=== PATIENT | female | born 2005 | race Caucasian/White ===

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

== ENCOUNTER 2024-07-11 14:48 | Emergency (ER) | payer MEDICAID, SELFPAY ==
--- NOTE | 2024-07-11 14:51 | XRR_ITS ---
PROCEDURE INFORMATION: Exam: XR Chest Exam date and time: 07/11/2024 2:57 PM Age: 19 years old Clinical indication: Other: Light headed TECHNIQUE: Imaging protocol: Radiologic exam of the chest. Views: 1 view. COMPARISON: No relevant prior studies available. FINDINGS: Lungs: Unremarkable. No consolidation. Pleural spaces: Unremarkable. No pleural effusion. No pneumothorax. Heart/Mediastinum: Unremarkable. No cardiomegaly. Bones/joints: Unremarkable. XR/XR chest 1V portable [id number] IMPRESSION: No acute findings.
[2024-07-11 15:08] VITALS: BP 122/85; PULSE 89; RESP 16; TEMP 36.7; O2SAT 98
--- NOTE | 2024-07-11 15:09 | ECG_ITS ---
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 Measurements Intervals [place] Rate: 85 P: 30 FL: 152 QRS: 23 QRSD: 82 T: 19 QT: 347 QTc: 415 Interpretive Statements SINUS RHYTHM No previous ECG available for comparison Electronically Signed On 07-11-2024 19:41:11 CDT by Félix Barr M.D. [id number]
[2024-07-11 15:14] LABS: Basophils % 0.2 %; Eosinophils # 0.1 10^3/uL (0.0-0.8); Eosinophils % 0.9 %; Hematocrit 40.8 % (36-47); Lymphocytes % 22.9 %; Mean Corpuscular HGB Conc 33.6 g/dL (30-55); Mean Corpuscular Hemoglobin 29.8 pg (27-33); Mean Corpuscular Volume 88.7 fl (85-98); Monocytes # 0.7 10^3/uL (0.2-0.9); Monocytes % 7.8 %; Neutrophils % 67.7 %; Nucleated Red Blood Cells % 0 %; Platelet Count 298 10^3/cmm (157-399); Red Cell Distribution Width 12.4 % (12.1-15.1); White Blood Count 8.72 10^3/uL (4.5-13.0)
[2024-07-11 15:29] LABS: HCG, Serum Qual Negative (Negative)
[2024-07-11 15:33] LABS: Alanine Aminotransferase 13 U/L (0-33); Albumin Level 4.5 g/dL (3.5-5.2); Alkaline Phosphatase 73 U/L (35-105); Anion Gap 15.7 (5-19); Aspartate Amino Transferase 11 U/L (0-32); Blood Urea Nitrogen 6 mg/dL (6-20); Calcium 9.3 mg/dL (8.5-10.5); Carbon Dioxide 21 mmol/L (22-29); Chloride 107 mmol/L (98-107); Creatinine Clr Calc Pharmacy 195.6949; Globulin 3.4 g/dL (1.3-4.6); Glomerular Filtration Rate 157.3 mL/min (90-130); Glucose 109 mg/dL (65-115); Osmolality Calculated 288 mOsm/kg (285-295); Potassium 3.7 mmol/L (3.5-5.1); Sodium 140 mmol/L (136-145); Total Bilirubin 0.3 mg/dL (0.15-1.2); Total Protein 7.9 g/dL (6.6-8.7)
--- NOTE | 2024-07-11 15:36 | ED_ITS ---
HPI - Dizziness 2 General: Chief Complaint: Dizziness Stated Complaint: light headed Time Seen by Provider: 07/11/24 15:27 Source: patient Mode of arrival: ambulatory Limitations: no limitations History of Present Illness: HPI Narrative: 19-year-old female who states that 2 rachel rs ago she stood up and walk across forward felt lightheaded states she felt like she is going to pass out states this has happened in the past states it is improved but she still feeling slightly lightheaded she denies passing out denies any headache denies any chest pain denies any dizziness she denies any vomiting or diarrhea states she does not feel dehydrated. Associated symptoms: Denies chest pain, chills, headache(s), nausea or vomiting Related Data Previous Rx's Medication Instructions Recorded omeprazole 40 mg capsule,delayed 40 mg PO DAILY #14 caps 05/06/22 release ondansetron 4 mg disintegrating 4 mg PO Q8H PRN nausea and 05/06/22 tablet vomiting #10 tabs Allergies Allergy/AdvReac Type Severity Reaction Status Date / Time No Known Allergies Allergy Verified 07/11/24 15:11 Review of Systems 2 Const: Denies: fever(s), chills, body aches or change in appetite Eyes: Denies: blurry vision or eye discomfort ENMT: Denies: throat pain or dental pain Card: Reports: pre-syncope; Denies: chest pain Resp: Denies: dyspnea GI: Denies: abdominal pain, nausea, vomiting or diarrhea : Denies: dysuria Musc: Denies: neck pain or back pain Skin/Breast: Denies: rash Neuro: Denies: headache(s) [facility] ED 2 Female Reproductive History: Date of last menstrual period: 07/09/24 Physical Exam 2 Const: COMMON NORMALS: no acute distress, patient oriented x3 and healthy appearing HENMT: COMMON NORMALS: normocephalic and atraumatic HEAD & SCALP: n ormocephalic and atraumatic Neck/C-Spine: COMMON NORMALS: full ROM and supple Chest: COMMONS NORMALS: normal inspection of the chest and normal palpation of entire chest wall Resp: COMMON NORMALS: normal respiratory effort, No retractions, No use of accessory muscles and clear to auscultation bilaterally AUSCULTATION: clear to auscultation bilaterally Cardio: COMMON NORMALS: regular rate, regular rhythm and No murmurs present (Cardio) RATE: regular rate RHYTHM: regular rhythm Extremity: COMMON NORMALS: normal to inspection and full ROM Neuro: COMMON NORMALS: patient oriented x3, moves all extremities and no focal motor deficits Psych: COMMON NORMALS: mental status grossly normal, Normal thought process present and cooperative THOUGHT PROCESS: Normal thought process present Skin: COMMON NORMALS: no rashes or lesions noted and no wounds GENERAL SKIN EXAM: no rashes or lesions noted Course 2 Vital Signs: Vital signs: Vital Signs Temperature 98.1 F 07/11/24 15:08 Pulse Rate 91 07/11/24 16:03 Respiratory Rate 16 07/11/24 15:08 Blood Pressure 148/100 07/11/24 16:03 Pulse Oximetry 100 07/11/24 16:03 Oxygen Delivery Me thod Room Air 07/11/24 16:03 MDM - Dizziness Medical Decision Making Patient presents with a near syncopal event some lightheadedness she has been well-appearing here and orthostatics are normal blood work is normal no vertigo noted no headache she is stable for discharge follow-up with PCP return if worsening. Medical Records I reviewed the patient's medical records. Lab Data I reviewed the patient's lab results. 07/11/24 15:08 07/11/24 15:08 Laboratory Results WBC 8.72 10^3/uL (4.5-13.0) 07/11/24 15:08 RBC 4.60 10^6/uL (3.85-5.65) 07/11/24 15:08 Hgb 13.70 g/dL (12.4-14.8) 07/11/24 15:08 Hct 40.8 % (36-47) 07/11/24 15:08 MCV 88.7 fl (85-98) 07/11/24 15:08 MCH 29.8 pg (27-33) 07/11/24 15:08 MCHC 33.6 g/dL (30-55) 07/11/24 15:08 RDW 12.4 % (12.1-15.1) 07/11/24 15:08 Plt Count 298 10^3/cmm (157-399) 07/11/24 15:08 MPV 10.0 fL (7.4-10.4) 07/11/24 15:08 Neut % (Auto) 67.7 % 07/11/24 15:08 Lymph % (Auto) 22.9 % 07/11/24 15:08 [place] % (Auto) 7.8 % 07/11/24 15:08 Eos % (Auto) 0.9 % 07/11/24 15:08 Baso % (Auto) 0.2 % 07/11/24 15:08 Neut # (Auto) 5.90 10^3/uL (1.8-8.0) 07/11/24 15:08 Lymph # (Auto) 2.0 10^3/uL (1.5-6.5) 07/11/24 15:08 [place] # (Auto) 0.7 10^3/uL (0.2-0.9) 07/11/24 15:08 Eos # (Auto) 0.1 10^3/uL (0.0-0.8) 07/11/24 15:08 Baso # (Auto) 0.0 10^3/uL (0.0-0.1) 07/11/24 15:08 Nucleated RBC % (auto) 0 % 07/11/24 15:08 Nucleated RBCs # 0.0 /100WBC 07/11/24 15:08 Sodium 140 mmol/L (136-145) 07/11/24 15:08 Potassium 3.7 mmol/L (3.5-5.1) 07/11/24 15:08 Chloride 107 mmol/L (98-107) 07/11/24 15:08 Carbon Dioxide 21 mmol/L (22-29) L 07/11/24 15:08 Anion Gap 15.7 (5-19) 07/11/24 15:08 BUN 6 mg/dL (6-20) 07/11/24 15:08 Creatinine 0.5 mg/dL (0.5-0.9) 07/11/24 15:08 GFR Calculation 157.3 mL/min (90-130) H 07/11/24 15:08 Glucose 109 mg/dL (65-115) 07/11/24 15:08 Calculated Osmolality 288 mOsm/kg (285-295) 07/11/24 15:08 Calcium 9.3 mg/dL (8.5-10.5) 07/11/24 15:08 Total Bilirubin 0.3 mg/dL (0.15-1.2) 07/11/24 15:08 AST 11 U/L (0-32) 07/11/24 15:08 ALT 13 U/L (0-33) 07/11/24 15:08 Alkaline Phosphatase 73 U/L (35-105) 07/11/24 15:08 Total Protein 7.9 g/dL (6.6-8.7) 07/11/24 15:08 Albumin 4.5 g/dL (3.5-5.2) 07/11/24 15:08 Globulin 3.4 g/dL (1.3-4.6) 07/11/24 15:08 HCG, Qual Negative (Negative) 07/11/24 15:08 All radiology interpretation(s) finalized by discharge EKG Data EKG 1: I personally reviewed and interpreted this EKG as follows: EKG interpretation date: 07/11/24 EKG interpretation time: 15:09 Interpretation: nsr hr [address] or t wave abnormalities qrs 82 qtc 390 Discharge Plan Discharge Patient Disposition: Home Clinical Impression: Near syncope Condition: Stable Prescriptions: No Action omeprazole 40 mg capsule,delayed release(DR/EC) 40 mg PO DAILY Qty: 14 0RF Rx Instructions: take 30 minutes before first meal of the day ondansetron 4 mg tablet,disintegrating 4 mg PO Q8H PRN (Reason: nausea and vomiting) Qty: 10 0RF Discharge Orders: Discharge ED (Routine); Ordered 07/11/24 Ordered By: Amor Evans Discharge Diet: Advance as tolerated Discharge Activity: Resume usual activity Patient Instructions: Near Syncope (ED) Coding Level of Care Code ED Quality Improvement Specialist for Torsten Reinoso
[2024-07-11 16:01] VITALS: BP 141/85; BP 148/100; BP 152/95; PULSE 85; PULSE 86; PULSE 95
[2024-07-11 16:03] VITALS: BP 148/100; PULSE 91; O2SAT 100
--- NOTE | 2024-07-11 16:39 | PC.NURSE ---
PATIENT STATES SHE DOES NOT LIKE TO TAKE ANY MEDICATIONS AND REFUSED MED. MED WASTED WITH SUE BARRAGAN RN.
[2024-07-11 16:57] VITALS: BP 148/100; PULSE 91; RESP 16; TEMP 36.7; O2SAT 100
== END 2024-07-11 16:45 | disposition home or self-care (01) ==
PROVIDERS: Emergency Provider Emergency Medicine
DX: R55 Syncope and collapse (principal)
CPT/HCPCS: 36415; 71045; 80053; 84703; 85025; 93005; 99285

== ENCOUNTER 2025-05-20 22:46 | Emergency (ER) | payer MEDICAID, SELFPAY ==
[2025-05-20 22:55] VITALS: BP 122/83; PULSE 93; RESP 14; TEMP 36.7; O2SAT 100; BMI 39.3
[2025-05-20] MEDS: dexamethasone 4 mg Tablet 10 MG PO (23:20)
[2025-05-20 23:21] VITALS: RESP 14
[2025-05-20] MEDS: amoxicillin-clav 875-125 mg Tablet 1 TAB PO (23:21)
[2025-05-20] MEDS: oxyCODONE-APAP 5-325 mg Tablet 2 TAB PO (23:21)
--- NOTE | 2025-05-20 23:52 | W.ED.DENTAL ---
HPI - Dental/Oral General: Chief complaint: Dental/Oral Stated complaint: right side dental pain with swelling Time Seen by Provider: 05/20/25 22:59 History of Present Illness: 20-year-old female with right-sided lower jaw pain and swelling over the past week, much worse over the past 3 days. No vomiting. No fever. No rash. No trouble breathing. No trouble swallowing. No sore throat. Related Data Previous Rx's ?Medication ?Instructions ?Recorded omeprazole 40 mg capsule,delayed 40 mg PO DAILY #14 caps 05/06/22 release ondansetron 4 mg disintegrating 4 mg PO Q8H PRN nausea and 05/06/22 tablet vomiting #10 tabs amoxicillin 875 mg-potassium 1 tab PO BID #20 tabs 05/20/25 clavulanate 125 mg tablet hydrocodone 5 mg-acetaminophen 325 1 tab PO Q8H PRN pain #7 tabs 05/20/25 mg tablet Allergies Allergy/AdvReac Type Severity Reaction Status Date / Time No Known Allergies Allergy Verified 05/20/25 22:58 Physical Exam HENMT: COMMON NORMALS: normocephalic, Normal external nose present and Normal nasal mucous membranes and turbinates present HEAD & SCALP: normocephalic FACE & SINUS: edema; face not symmetric (Right sided swelling) and no erythema NOSE: Normal external nose present, Normal nares present and Normal nasal mucous membranes and turbinates present TEETH & GINGIVA: Yes gingiva abnormal (Right lower gingival tenderness, likely abscess) tender THROAT: posterior oropharynx normal Eye: COMMON NORMALS: Equal, round and reactive pupils present and EOMs intact bilaterally PUPIL: Yes Equal, round and reactive pupils present Chest: CHEST: Yes Symmetrical chest wall rise Resp: COMMON NORMALS: normal respiratory effort, No retractions and clear to auscultation bilaterally AUSCULTATION: clear to auscultation bilaterally Cardio: COMMON NORMALS: regular rate and regular rhythm RATE: regular rate RHYTHM: regular rhythm Course Vital Signs: Vital signs: Vital Signs Temperature 98.1 F 05/20/25 22:55 Pulse Rate 93 05/20/25 22:55 Respiratory Rate 14 05/20/25 23:21 Blood Pressure 122/83 05/20/25 22:55 Pulse Oximetry 100 05/20/25 22:55 MDM - Dental/Oral Medical Decision Making Patient given 1 dose of dexamethasone for swelling, Augmentin. Short course of pain medication. Dental follow-up. She also has some tenderness to the right buccal mucosa with redness around her salivary duct opening. She could have some sialoadenitis as well. She was encouraged to use things that make her's elevate in case that there is some degree of salivary involvement No radiology studies performed this visit Discharge Plan Discharge Patient Disposition: Home Clinical Impression: Gingival abscess Condition: Stable Prescriptions: New hydrocodone-acetaminophen 5-325 mg tablet 1 tab PO Q8H PRN (Reason: pain) Qty: 7 0RF amoxicillin-pot clavulanate 875-125 mg tablet 1 tab PO BID Qty: 20 0RF No Action omeprazole 40 mg capsule,delayed release(DR/EC) 40 mg PO DAILY Qty: 14 0RF Rx Instructions: take 30 minutes before first meal of the day ondansetron 4 mg tablet,disintegrating 4 mg PO Q8H PRN (Reason: nausea and vomiting) Qty: 10 0RF Discharge Orders: Discharge ED (Routine); Ordered 05/20/25 Ordered By: Julio Westfall Patient Instructions: Dental Abscess (ED), Opioid Safety, Pain Management Activity Restrictions/Additional Instructions: Medication as directed. Contact your dentist on Friday for follow-up appointment. Print Language: German Coding Level of Care Code ED Cytology Laboratory Manager for Torsten Reinoso
== END 2025-05-20 23:37 | disposition home or self-care (01) ==
PROVIDERS: Emergency Provider Emergency Medicine
DX: K05.20 Aggressive periodontitis, unspecified (principal)
CPT/HCPCS: 99283; J8540; J9999

== ENCOUNTER 2025-06-21 14:52 | Emergency (ER) | payer MEDICAID, SELFPAY ==
[2025-06-21 14:55] VITALS: BP 131/73; PULSE 105; RESP 16; TEMP 37.2; O2SAT 97
--- NOTE | 2025-06-21 15:10 | ED_ITS ---
HPI - Dental/Oral 2 General: Chief complaint: Dental/Oral Stated complaint: pain on rt side of face Time Seen by Provider: 06/21/25 14:56 Source: patient Mode of arrival: ambulatory Limitations: no limitations History of Present Illness: 20-year-old female who presents to the E D for complaint of right lower molar dental pain. Patient was here about 4 weeks ago for the same complaint and was treated with antibiotics. She completed her antibiotics and states she did not have any issues until the last couple of days. She states that she has an appointment scheduled with a dentist in 2 weeks. She reports worsening dental pain and mild swelling to her right cheek area over the last few days. She is able to eat/drink/swallow normally. No trouble breathing or controllling secretions. No fevers. No other complaints at this time. MD Complaint: tooth pain Teeth map: 1. Onset (ago): day(s) Duration: constant Severity: moderate Exacerbating factors: chewing Context: history of dental caries Associated symptoms: Reports no associated symptoms; Denies ear or mastoid pain, fever(s) or odynophagia Treatment prior to arrival: none Related Data Previous Rx's ?Medication ?Instructions ?Recorded omeprazole 40 mg capsule,delayed 40 mg PO DAILY #14 ca ps 05/06/22 release ondansetron 4 mg disintegrating 4 mg PO Q8H PRN nausea and 05/06/22 tablet vomiting #10 tabs hydrocodone 5 mg-acetaminophen 325 1 tab PO Q8H PRN pa in #7 tabs 05/20/25 mg tablet amoxicillin 875 mg-potassium 1 tab PO BID #20 tabs clavulanate 125 mg tablet Allergies Allergy/AdvReac Type Severity Reaction Status Date / Time No Known Allergies Allergy Verified 05/20/25 22:58 Review of Systems 2 Const: Denies: fever(s), chills, body aches, fatigue or malaise ENMT: Reports: dental pain; Denies: throat pain, uvular edema, enlarged tonsils, odynophagia, mouth pain, swelling of lips/tongue, oral sores, ear or mastoid pain or sinus pain Card: Denies: chest pain Resp: Denies: dyspnea GI: Denies: nausea or vomiting Musc: Denies: neck pain Neuro: Denies: headache(s) Physical Exam 2 Const: COMMON NORMALS: no acute distress, average body habitus, patient oriented x3, no limitations, healthy appearing, alert and well nourished G ENERAL APPEARANCE: cooperative ORIENTATION/CONSCIOUSNESS: Yes awake, Yes oriented to person, Yes oriented to place and Yes oriented to time HENMT: COMMON NORMALS: normocephalic and atraumatic HEAD & SCALP: normal to inspection, normocephalic and atraumatic FACE & SINUS: other (maybe very mild R sided mandibular edema; no submandibular swelling) FACE & SINUS IMAGES: 1. edema MOUTH: Normal oral and palatal mucosa present, lip normal, tongue normal and Normal salivary glands and ducts present TEETH & GINGIVA: Yes caries TEETH & GINGIVA IMAGES: 1. reports painful R lower molar; gingival inflammation without abscess THROAT: posterior oropharynx normal and tonsils normal; no uvular edema Neck/C-Spine: COMMON NORMALS: full ROM and no lymphadenopathy GENERAL: Yes normal visual inspection, No anterior neck swelling and No submandibular swelling Resp: COMMON NORMALS: normal respiratory effort and clear to auscultation bilaterally AUSCULTATION: clear to auscultation bilaterally Cardio: COMMON NORMALS: regular rate and regular rhythm RATE: regular rate RHYTHM: regular rhythm Neuro: COMMON NORMALS: patient oriented x3 SENSORIUM/ORIENTATION: Yes alert, Yes oriented to person, Yes oriented to place and Yes oriented to time Course 2 Vital Signs: Vital signs: Vital Signs Temperature 99.0 F 06/21/25 14:55 Pulse Rate 105 H 06/21/25 14:55 Respiratory Rate 16 06/21/25 14:55 Blood Pressure 131/73 06/21/25 14:55 Pulse Oximetry 97 06/21/25 14:55 Oxygen Delivery Me thod Room Air 06/21/25 14:55 MDM - Dental/Oral Medical Decision Making Patient has no drainable dental abscess. No concern for deep space infection. She will be placed on antibiotics and recommend follow-up with dentist in 2 weeks as scheduled. Differential Diagnosis Likely gingival abscess, dental caries, toothache and dental abscess Medical Records I reviewed the patient's medical records. No radiology studies performed this visit Discharge Plan Discharge Patient Disposition: Home Clinical Impression: Toothache, Dental caries, Dental infection Condition: Stable Prescriptions: Continued amoxicillin-pot clavulanate 875-125 mg tablet 1 tab PO BID Qty: 20 0RF No Action omeprazole 40 mg capsule,delayed release(DR/EC) 40 mg PO DAILY Qty: 14 0RF Rx Instructions: take 30 minutes before first meal of the day ondansetron 4 mg tablet,disintegrating 4 mg PO Q8H PRN (Reason: nausea and vomiting) Qty: 10 0RF hydrocodone-acetaminophen 5-325 mg tablet 1 tab PO Q8H PRN (Reason: pain) Qty: 7 0RF Discharge Orders: Discharge ED (Routine); Ordered 06/21/25 Ordered By: Dee Dee Frost Patient Instructions: Toothache (ED), Patient Portal & Art Instructions Print Language: Chinese Coding Level of Care Code ED Digital Archivist for Torsten Reinoso
== END 2025-06-21 15:36 | disposition home or self-care (01) ==
PROVIDERS: Emergency Provider Physician Assistant
DX: K08.89 Other specified disorders of teeth and supporting structures (principal); K02.9 Dental caries, unspecified; K04.7 Periapical abscess without sinus
CPT/HCPCS: 99283

== ENCOUNTER 2025-07-23 21:30 | Emergency (ER) | payer MEDICAID, SELFPAY ==
[2025-07-23 21:35] VITALS: BP 104/70; PULSE 77; RESP 15; TEMP 36.8; O2SAT 99; BMI 41.5
--- NOTE | 2025-07-23 21:36 | ECG_ITS ---
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 Measurements Intervals [place] Rate: 71 P: 15 AR: 156 QRS: 23 QRSD: 82 T: 13 QT: 356 QTc: 389 Interpretive Statements SINUS RHYTHM Compared to ECG 07/11/2024 15:09:47 No significant changes Electronically Signed On 07-24-2025 19:02:52 CDT by Henry Burrows M.D. [email or web address] [id number]
--- NOTE | 2025-07-23 22:34 | XRR_ITS ---
PROCEDURE INFORMATION: Exam: XR Right Ankle Exam date and time: 07/23/2025 10:38 PM Age: 20 years old Clinical indication: Injury or trauma; Fall; Blunt trauma; Right; Syncope from standing. C/O RT ankle pain; Additional info: Syncope, injured foot TECHNIQUE: Imaging protocol: Radiologic exam of the right ankle. Views: 3 or more views. COMPARISON: CR XR knee RT 3V* [id number] 07/23/2025 10:38 PM FINDINGS: Bones/joints: Normal. Soft tissues: Normal. XR/XR ankle RT min 3V* [id number] IMPRESSION: No acute fracture or dislocation.
--- NOTE | 2025-07-23 22:34 | XRR_ITS ---
PROCEDURE INFORMATION: Exam: XR Right Knee Exam date and time: 07/23/2025 10:38 PM Age: 20 years old Clinical indication: Injury or trauma; Fall; Blunt trauma; Right; Syncope from standing. C/O RT knee pain. ; Additional info: Syncope, injured knee TECHNIQUE: Imaging protocol: Radiologic exam of the right knee. Views: 3 views. COMPARISON: CR (LOW EXM, ) 07/23/2025 10:38 PM FINDINGS: Bones/joints: Normal. Soft tissues: Normal. XR/XR knee RT 3V* [id number] IMPRESSION: No acute fracture or dislocation.
--- NOTE | 2025-07-23 22:35 | XRR_ITS ---
PROCEDURE INFORMATION: Exam: XR Chest Exam date and time: 07/23/2025 10:38 PM Age: 20 years old Clinical indication: Other: Syncope; Syncopal episode. TECHNIQUE: Imaging protocol: Radiologic exam of the chest. Views: 1 view. COMPARISON: CR XR chest 1V portable [id number] 07/11/2024 2:57 PM FINDINGS: Lungs: Unremarkable. No consolidation. Pleural spaces: Unremarkable. No pleural effusion. No pneumothorax. Heart/Mediastinum: Unremarkable. No cardiomegaly. Bones/joints: Unremarkable. XR/XR chest 1V portable [id number] IMPRESSION: No acute cardiopulmonary process.
--- NOTE | 2025-07-23 22:35 | CTR_ITS ---
PROCEDURE INFORMATION: Exam: CT Head Without Contrast Exam date and time: 07/23/2025 10:48 PM Age: 20 years old Clinical indication: Syncope and collapse; Syncopal episode from standing. C/O dizziness. History of vertigo. ; Additional info: Syncope, May have hit head TECHNIQUE: Imaging protocol: Computed tomography of the head without contrast. Radiation optimization: All CT scans at this facility use at least one of these dose optimization techniques: automated exposure control; mA and/or kV adjustment per patient size (includes targeted exams where dose is matched to clinical indication); or iterative reconstruction. COMPARISON: No relevant prior studies available. RADIATION DOSE METRICS: Total DLP (mGy-cm): 980.47 FINDINGS: Brain: Normal. No hemorrhage. Unremarkable white matter. No mass effect. Cerebral ventricles: No ventriculomegaly. Paranasal sinuses: Visualized sinuses are unremarkable. No fluid levels. Mastoid air cells: Visualized mastoid air cells are well aerated. Bones: Unremarkable. No acute fracture. Soft tissues: Unremarkable. CT/CT head wo con* [id number] IMPRESSION: No acute intracranial posttraumatic changes.
--- NOTE | 2025-07-23 23:11 | ED_ITS ---
HPI - Dizziness 2 General: Chief Complaint: Dizziness Stated Complaint: Passed out, has vertigo Time Seen by Provider: 07/23/25 21:47 Source: patient Mode of arrival: ambulatory Limitations: no limitations History of Present Illness: HPI Narrative: Patient is a 20-year-old biological female who presents the emergency department planing of a syncopal episode about an hour prehospital. She states that she is unsure why she passed out, has a history of similar in the past. States that she has been feeling dizzy as well. Notes that she has been dealing with dizziness for a while however as she was diagnosed with vertigo and is currently on meclizine but also states that it has not been helping much. She is not reporting any headache, chest pain, shortness of breath, palpitations, vaginal bleeding, or fevers. She does note that recently she had a Holter monitor placed but has yet to return and she does not know the results. She also states that with the syncopal episode tonight, she did fall to the ground and does not recall if she hit her head or not. However she is reporting pain to her right ankle and right knee at this time. No other injuries noted. Vitals are stable, she is nontoxic-appearing. No focal neurological deficit at this time either. MD elicited complaint: dizziness Pertinent past history: BPPV History of similar symptoms: Yes Associated symptoms: Reports syncope; Denies chest pain, chills, headache(s), nausea, palpitations or vomiting Associated neuro symptoms: Deny numbness in extremities Related Data Previous Rx's ?Medication ?Instructions ?Recorded omeprazole 40 mg capsule,delayed 40 mg PO DAILY #14 ca ps 05/06/22 release ondansetron 4 mg disintegrating 4 mg PO Q8H PRN nausea and 05/06/22 tablet vomiting #10 tabs hydrocodone 5 mg-acetaminophen 325 1 tab PO Q8H PRN pa in #7 tabs 05/20/25 mg tablet amoxicillin 875 mg-potassium 1 tab PO BID #20 tabs clavulanate 125 mg tablet Allergies Allergy/AdvReac Type Severity Reaction Status Date / Time No Known Allergies Allergy Verified 05/20/25 22:58 Review of Systems 2 General: Reports: 10 or more systems reviewed and unremarkable except in HPI and below Const: Denies: fever(s), chills or fatigue Eyes: Denies: change in vision ENMT: Denies: throat pain, ear or mastoid pain or nasal discharge Card: Reports: syncope; Denies: chest pain, palpitations, swelling of feet/ankles or lightheadedness Resp: Denies: dyspnea, productive cough or wheezing GI: Denies: abdominal pain, nausea, vomiting, diarrhea or constipation : Denies: flank pain, difficulty voiding, dysuria or urinary frequency Musc: Reports: joint pain (rt ankle/knee); Denies: neck pain or back pain Skin/Breast: Denies: rash Neuro: Reports: dizziness; Denies: headache(s), numbness in extremities, weakness in extremities or seizure-like activity Physical Exam 2 Const: COMMON NORMALS: no acute distress, patient oriented x3 and no limitations GENERAL APPEARANCE: cooperative, comfortable and well developed ORIENTATION/CONSCIOUSNESS: Yes awake, Yes oriented to person, Yes oriented to place and Yes oriented to time HENMT: COMMON NORMALS: normocephalic, atraumatic and hearing grossly normal bilaterally HEAD & SCALP: normocephalic and atraumatic; no Arndt's sign, no palpable skull fracture, no raccoon eyes and no scalp tenderness Eye: COMMON NORMALS: Equal, round and reactive pupils present, EOMs intact bilaterally and conjunctivae normal CONJUNCTIVA: Yes conjunctivae normal P UPIL: Yes Equal, round and reactive pupils present Neck/C-Spine: COMMON NORMALS: full ROM, supple and no JVD Resp: COMMON NORMALS: normal respiratory effort, No retractions, No use of accessory muscles and clear to auscultation bilaterally AUSCULTATION: clear to auscultation bilaterally Cardio: COMMON NORMALS: no JVD, regular rate, regular rhythm, No clicks present (Cardio), No murmurs present (Cardio) and No rub (Cardio) RATE: r egular rate RHYTHM: regular rhythm GI: COMMON NORMALS: Normal to inspection, nondistended, normoactive bowel sounds present, Soft to palpation and non-tender AUSCULTATION: Yes normoactive bowel sounds PALPATION: Yes Soft to palpation RECTAL EXAM: d eferred Extremity: COMMON NORMALS: normal to inspection, full ROM and capillary refill normal NARRATIVE EXTREMITY EXAM: Tenderness to palpation of patient's right ankle and right knee. No signs of trauma or deformity. Neuro: COMMON NORMALS: patient oriented x3, CN's II-XII intact bilaterally, moves all extremities, no focal motor deficits and no sensory deficits noted SENSORIUM/ORIENTATION: Yes oriented to person, Yes oriented to place and Yes oriented to time Psych: COMMON NORMALS: mental status grossly normal and Normal thought process present THOUGHT PROCESS: Normal thought process present Skin: COMMON NORMALS: no rashes or lesions noted GENERAL SKIN EXAM: no rashes or lesions noted Course 2 Vital Signs: Vital signs: Vital Signs Temperature 98.3 F 07/23/25 21:35 Pulse Rate 80 07/24/25 00:58 Respiratory Rate 15 07/23/25 21:35 Blood Pressure 138/87 07/24/25 00:58 Pulse Oximetry 100 07/24/25 00:58 Oxygen Delivery Me thod Room Air 07/23/25 21:35 MDM - Dizziness Medical Decision Making Patient presenting after syncopal episode today, history of similar and has been taking meclizine for vertigo. Feeling dizzy on arrival, also reporting pain in her right lower extremity status post syncopal episode. No focal neurological deficit on exam, patient states she is unsure why she passed out. Unknown if she hit her head. She had no symptoms prior to the episode or leading up. She is essentially asymptomatic at this time, head CT was normal including negative chest x-ray, knee x-ray on the right, and ankle x-ray on the right. CBC, CMP, urinalysis are all unremarkable. An EKG showing normal sinus rhythm with no acute ST segment changes. Orthostatics are nondiagnostic. She is recently had Holter monitor placed, but has not returned it. I do not suspect any emergent cause for her episode tonight but I do feel that it would warrant further evaluation on an outpatient basis, specifically returning Holter monitor to check for any arrhythmias. She has no concerning cardiac findings on EKG or x- ray and no family history of sudden cardiac , so I feel that this can safely follow-up outpatient for this reason as well. Encouraged her to drink plenty of fluids and to return with any further episodes. She is to continue taking her meclizine and stable for discharge at this time. Lab Data 07/23/25 23:57 07/23/25 23:57 Radiology Impressions Ankle X-Ray 07/23/25 22:34 IMPRESSION: No acute fracture or dislocation. Knee X-Ray 07/23/25 22:34 IMPRESSION: No acute fracture or dislocation. Chest X-Ray 07/23/25 22:35 IMPRESSION: No acute cardiopulmonary process. Head CT 07/23/25 22:35 IMPRESSION: No acute intracranial posttraumatic changes. Laboratory Results WBC 10.43 10^3/uL (3.29-11.43) 07/23/25 23:57 RBC 4.23 10^6/uL (3.85-5.65) 07/23/25 23:57 Hgb 12.90 g/dL (11.27-16.99) 07/23/25 23:57 Hct 39.6 % (36-47) 07/23/25 23:57 MCV 93.6 fl (85-98) 07/23/25 23:57 MCH 30.5 pg (27-33) 07/23/25 23:57 MCHC 32.6 g/dL (30-55) 07/23/25 23:57 RDW 12.2 % (12.1-15.1) 07/23/25 23:57 Plt Count 254 10^3/cmm (157-399) 07/23/25 23:57 MPV 10.1 fL (7.4-10.4) 07/23/25 23:57 Neut % (Auto) 63.7 % 07/23/25 23:57 Lymph % (Auto) 26.5 % 07/23/25 23:57 [place] % (Auto) 7.9 % 07/23/25 23:57 Eos % (Auto) 1.2 % 07/23/25 23:57 Baso % (Auto) 0.4 % 07/23/25 23:57 Neut # (Auto) 6.66 10^3/uL (1.8-7.7) 07/23/25 23:57 Lymph # (Auto) 2.8 10^3/uL (0.8-4.8) 07/23/25 23:57 [place]ck[place] # (Auto) 0.8 10^3/uL (0.2-0.9) 07/23/25 23:57 Eos # (Auto) 0.1 10^3/uL (0.0-0.8) 07/23/25 23:57 Baso # (Auto) 0.0 10^3/uL (0.0-0.1) 07/23/25 23:57 Nucleated RBC % (auto) 0 % 07/23/25 23:57 Nucleated RBCs # 0.0 /100WBC 07/23/25 23:57 Sodium 139 mmol/L (136-145) 07/23/25 23:57 Potassium 3.9 mmol/L (3.5-5.1) 07/23/25 23:57 Chloride 107 mmol/L (98-107) 07/23/25 23:57 Carbon Dioxide 17 mmol/L (22-29) L 07/23/25 23:57 Anion Gap 18.9 (5-19) 07/23/25 23:57 BUN 9 mg/dL (6-20) 07/23/25 23:57 Creatinine 0.5 mg/dL (0.5-0.9) 07/23/25 23:57 GFR Calculation 155.7 mL/min (90-130) H 07/23/25 23:57 Glucose 98 mg/dL (65-115) 07/23/25 23:57 Calculated Osmolality 287 mOsm/kg (285-295) 07/23/25 23:57 Calcium 8.8 mg/dL (8.5-10.5) 07/23/25 23:57 Total Bilirubin 0.3 mg/dL (0.15-1.2) 07/23/25 23:57 AST 13 U/L (0-32) 07/23/25 23:57 ALT 14 U/L (0-33) 07/23/25 23:57 Alkaline Phosphatase 67 U/L (35-105) 07/23/25 23:57 Total Protein 7.1 g/dL (6.6-8.7) 07/23/25 23:57 Albumin 4.0 g/dL (3.5-5.2) 07/23/25 23:57 Globulin 3.1 g/dL (1.3-4.6) 07/23/25 23:57 HCG, Qual Negative (Negative) 07/23/25 23:20 Urine Color Yellow (Yellow) 07/23/25 23:20 Urine Appearance Clear (CLEAR) 07/23/25 23:20 Urine pH 7.0 (5-7) 07/23/25 23:20 Ur Specific Knapp 1.011 (1.005-1.030) 07/23/25 23:20 Urine Protein Negative (Negative) 07/23/25 23:20 Urine Glucose (UA) Negative (Normal) 07/23/25 23:20 Urine Ketones Negative (Negative) 07/23/25 23:20 Urine Blood Negative (Negative) 07/23/25 23:20 Urine Nitrate Negative (Negative) 07/23/25 23:20 Urine Bilirubin Negative (Negative) 07/23/25 23:20 Urine Urobilinogen 0.2 mg/dL (Negative) 07/23/25 23:20 Ur Leukocyte Esterase Negative (Negative) 07/23/25 23:20 Urine RBC 0-2 /hpf (0-2) 07/23/25 23:20 Urine WBC 0-5 /hpf (0-5) 07/23/25 23:20 Ur Squamous Epith Cells 0-5 /hpf (0-5) 07/23/25 23:20 Amorphous Sediment Not Reportable 07/23/25 23:20 Urine Bacteria None seen /hpf (NONE) 07/23/25 23:20 Hyaline Casts 0-4 /lpf H 07/23/25 23:20 All radiology interpretation(s) finalized by discharge Discharge Plan Discharge Patient Disposition: Home Clinical Impression: Syncope and collapse Contusion of knee, right Qualifiers: Encounter type: initial encounter Qualified Code(s): S80.01XA - Contusion of right knee, initial encounter Right ankle sprain Qualifiers: Encounter type: initial encounter Involved ligament of ankle: unspecified ligament Qualified Code(s): S93.401A - Sprain of unspecified ligament of right ankle, initial encounter Condition: Stable Prescriptions: No Action omeprazole 40 mg capsule,delayed release(DR/EC) 40 mg PO DAILY Qty: 14 0RF Rx Instructions: take 30 minutes before first meal of the day ondansetron 4 mg tablet,disintegrating 4 mg PO Q8H PRN (Reason: nausea and vomiting) Qty: 10 0RF amoxicillin-pot clavulanate 875-125 mg tablet 1 tab PO BID Qty: 20 0RF hydrocodone-acetaminophen 5-325 mg tablet 1 tab PO Q8H PRN (Reason: pain) Qty: 7 0RF Discharge Orders: Discharge ED (Routine); Ordered 07/24/25 Ordered By: Jose Matamoros Patient Instructions: Patient Portal & Art Instructions Activity Restrictions/Additional Instructions: Syncope Discharge Instructions Discharge Instructions: Syncope and Collapse 20-year-old biological female, initial evaluation negative for serious etiology Summary of Evaluation and Rationale for Discharge: - Patient presented with a single episode of syncope and collapse. - No focal neurological deficits on examination. - Head CT, EKG, chest X-ray, and laboratory studies were all normal. - Orthostatic vital signs were negative. - No history or findings suggestive of cardiac, arrhythmic, or other serious noncardiac causes. - No high-risk features (e.g., abnormal EKG, exertional syncope, family history of sudden cardiac , structural heart disease, severe comorbidities). - Outpatient management is supported by the [place] [employer]/[place] [employer]/Heart Rhythm Society guidelines and recent validation studies. Medications: - Continue meclizine as previously prescribed for vertigo. Dosage should remain as previously directed, as no evidence supports modification in the absence of new symptoms or findings. Activity and Lifestyle: - Resume normal activities as tolerated, but avoid situations where sudden loss of consciousness could result in injury (e.g., swimming alone, climbing heights, operating heavy machinery). - Maintain adequate hydration and nutrition. - Rise slowly from sitting or lying positions to minimize risk of recurrence. Follow-Up: - Return previously worn Holter monitor for interpretation as soon as possible. - Schedule outpatient follow-up with primary care or cardiology as directed, especially if Holter results are abnormal or symptoms recur. - If symptoms of vertigo persist or worsen, consider further evaluation for underlying vestibular or neurological causes. Strict Return Precautions: Return to the emergency department immediately for any of the following: - Recurrent syncope or presyncope, especially if associated with exertion, palpitations, chest pain, shortness of breath, or new neurological symptoms (e.g., weakness, numbness, difficulty speaking). - Palpitations, irregular heartbeat, or new onset chest pain. - Severe headache, confusion, or persistent altered mental status. - Evidence of injury or trauma from a syncopal episode. - Any other concerning or rapidly worsening symptoms. Patient Education: - Most cases of syncope in young adults with a negative workup are benign and have a good prognosis. - A small proportion of patients may develop serious conditions after discharge; therefore, strict adherence to return precautions is essential. - If driving, follow local regulations regarding driving restrictions after syncope. 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
[2025-07-23 23:26] VITALS: BP 105/60; BP 110/82; BP 123/66; PULSE 71; PULSE 79; PULSE 81; PULSE 95; O2SAT 100
[2025-07-23 23:30] VITALS: BP 123/66; PULSE 78; O2SAT 95
[2025-07-23 23:40] LABS: HCG Qualitative Urine. Negative (Negative)
[2025-07-23 23:42] LABS: Glucose Urine UA Negative (Normal); Nitrate Urine Negative (Negative); Specific Gravity, Urine 1.011 (1.005-1.030)
[2025-07-23 23:47] LABS: Add Urine Microscopic? YES
[2025-07-24] VITALS: BP 123/79; PULSE 77; O2SAT 100
[2025-07-24 00:02] LABS: Hematocrit 39.6 % (36-47); Hemoglobin 12.90 g/dL (11.27-16.99); Mean Corpuscular HGB Conc 32.6 g/dL (30-55); Mean Corpuscular Hemoglobin 30.5 pg (27-33); Mean Corpuscular Volume 93.6 fl (85-98); Nucleated Red Blood Cells % 0 %; Platelet Count 254 10^3/cmm (157-399); Red Blood Count 4.23 10^6/uL (3.85-5.65); White Blood Count 10.43 10^3/uL (3.29-11.43)
[2025-07-24 00:50] LABS: Alanine Aminotransferase 14 U/L (0-33); Albumin Level 4.0 g/dL (3.5-5.2); Alkaline Phosphatase 67 U/L (35-105); Aspartate Amino Transferase 13 U/L (0-32); Blood Urea Nitrogen 9 mg/dL (6-20); Calcium 8.8 mg/dL (8.5-10.5); Carbon Dioxide 17 mmol/L (22-29); Chloride 107 mmol/L (98-107); Creatinine Clr Calc Pharmacy 192.7357; Globulin 3.1 g/dL (1.3-4.6); Glucose 98 mg/dL (65-115); Osmolality Calculated 287 mOsm/kg (285-295); Sodium 139 mmol/L (136-145); Total Protein 7.1 g/dL (6.6-8.7)
[2025-07-24 00:51] LABS: Anion Gap 18.9 (5-19); Potassium 3.9 mmol/L (3.5-5.1)
[2025-07-24 00:58] VITALS: BP 138/87; PULSE 80; O2SAT 100
== END 2025-07-24 00:59 | disposition home or self-care (01) ==
PROVIDERS: Emergency Provider Physician Assistant
DX: R55 Syncope and collapse (principal); S80.01XA Contusion of right knee, initial encounter; S93.401A Sprain of unspecified ligament of right ankle, initial encounter; W19.XXXA Unspecified fall, initial encounter
CPT/HCPCS: 36415; 70450; 71045; 73562; 73610; 80053; 81001; 81025; 85025; 93005; 99285